=== PATIENT | female | born 1945 | race Caucasian/White ===

== ENCOUNTER 2016-10-13 19:18 | Emergency (ER) | payer MEDICARE ==
[2016-10-13 19:25] VITALS: BP 134/70
--- NOTE | 2016-10-13 19:34 | UC ---
Upper Extremity HPI - HPI Summary HPI Summary: 71 YEAR OLD FEMALE PRESENTS WITH COMPLAINS OF RIGHT WRIST PAIN POST FALL. - History of Current Complaint Chief Complaint: UCUpperExtremity Stated Complaint: HAND AND WRIST INJURY Time Seen by Provider: 10/13/16 19:31 Hx Obtained From: Patient Onset/Duration: Sudden Onset Severity Initially: Moderate Severity Currently: Moderate Pain Scale Used: 0-10 Numeric - 6 Location Of Pain: Is Discrete @ Character: Sharp Aggravating Factor(s): Movement, Flexion, Extension, Internal/External Rotation , Abduction, Adduction Associated Signs And Symptoms: Positive: Swelling - Allergies/Home Medications Allergies/Adverse Reactions: Allergies Allergy/AdvReac Type Severity Reaction Status Date / Time Clarithromycin [From Biaxin] Allergy Mild GI Upset Verified 10/13/16 19:25 steri strips Allergy Intermediate Rash Uncoded 10/13/16 19:25 PMH/Surg Hx/FS Hx/Imm Hx Previously Healthy: Yes - Surgical History Surgical History: Yes Surgery Procedure, Year, and Place: [id number] left [facility], rt ankle fusion, thyroidectomy, left knee arthroscopy, tonsilectomy. PESSARIES - WILL REMOVE FOR MRI - Family History Known Family History: Positive: None - Social History Alcohol Use: Occasionally Substance Use Type: None Smoking Status (MU): Former Smoker Type: Cigarettes Review of Systems Constitutional: Negative Skin: Negative Eyes: Negative ENT: Negative Respiratory: Negative Cardiovascular: Negative Gastrointestinal: Negative Genitourinary: Negative Motor: Negative Neurovascular: Negative Musculoskeletal: Other: - RIGHT WRIST PAIN Neurological: Negative Psychological: Negative All Other Systems Reviewed And Are Negative: Yes Physical Exam Triage Information Reviewed: Yes Vital Signs: Initial Vital Signs Temp 37.2 C 10/13/16 19:22 Pulse 67 10/13/16 19:22 Resp 12 10/13/16 19:22 BP 134/70 10/13/16 19:22 Pulse Ox 100 10/13/16 19:22 Eye Exam: Normal ENT Exam: Normal Dental Exam: Normal Neck exam: Normal Neck: Positive: 1 Respiratory Exam: Normal Cardiovascular Exam: Normal Abdominal Exam: Normal Musculoskeletal: Positive: Other: - RIGHT WRIST PAIN Neurological Exam: Normal Psychological Exam: Normal Skin Exam: Normal Upper Extremity Course/Dx - Differential Dx/Diagnosis Provider Diagnoses: RIGHT WRIST PAIN/SWELLING Discharge - Discharge Plan Condition: Stable Disposition: HOME Prescriptions: Acetaminophen TAB* [Tylenol TAB*] 650 mg PO Q6H PRN #30 tab PRN Reason: Pain Patient Education Materials: Wrist Injury (ED) Referrals: Mariola Oliva MD [Primary Care Provider] -
--- NOTE | 2016-10-13 20:17 | RAD ---
Indication: Right wrist injury. 3 views of the wrist demonstrates no fracture. No other bone or joint abnormality is identified. Chondrocalcinosis is noted at the triangle fibrocartilage. IMPRESSION: NO FRACTURE OF THE WRIST IS NOTED.
== END 2016-10-13 20:44 | disposition home or self-care (01) ==
LOC: UCEAST 19:18
DX: M25.531 Pain in right wrist (principal); M25.431 Effusion, right wrist; Z88.1 Allergy status to other antibiotic agents; Z87.891 Personal history of nicotine dependence
CPT/HCPCS: 99213; G0463

== ENCOUNTER 2018-05-31 11:09 | Emergency (ER) | payer MEDICARE ==
[2018-05-31 11:31] VITALS: BP 141/79
--- NOTE | 2018-05-31 12:07 | UC ---
FLU HPI - HPI Summary HPI Summary: 72-year-old female presents with complaints of persistent cough and fatigue. States she developed flulike symptoms on 05/21/2018 including general malaise, fatigue, body aches, nasal congestion, runny nose, and a dry nonproductive cough. She was seen by her primary care provider on 05/25/2018 and tested positive for influenza A. She states her symptoms were not improving so she called her primary care provider 2 days ago who started her on doxycycline 100 mg twice a day 10 days, gave her prescription for Delora inhaler which she has been using twice a day, as well as a cough suppressant as needed. Patient presents today because she has seen no improvement in her symptoms since starting the doxycycline and was unable to get in to see her primary care provider today. States her cough is usually nonproductive although she is occasionally of some clear mucus. Patient does have a history of rheumatoid arthritis and is currently on Enbrel and methotrexate however she states she has not been taking any of these medications since her illness began. Denies fever, chills, nasal congestion, runny nose, sore throat, chest pain, shortness of breath, wheezing, abdominal pain, nausea, or vomiting. - History of Current Complaint Chief Complaint: UCGeneralIllness Stated Complaint: FLU SYMPTOMS Time Seen by Provider: 05/31/18 12:02 Hx Obtained From: Patient Pain Intensity: 3 - Allergy/Home Medications Allergies/Adverse Reactions: Allergies Allergy/AdvReac Type Severity Reaction Status Date / Time clarithromycin [From Biaxin] AdvReac Mild GI Upset Verified 05/31/18 11:34 steri strips Allergy Intermediate Rash Uncoded 05/31/18 11:34 Home Medications: Home Medications DOXYcycline CAP(*) [DOXYcycline 100MG CAP(*)] 100 mg PO BID 05/31/18 [History Confirmed 05/31/18] Gabapentin CAP(*) [Neurontin 300 CAP(*)] 600 mg PO BEDTIME 05/31/18 [History Confirmed 05/31/18] Losartan Potassium [Cozaar] 50 mg PO DAILY 05/31/18 [History Confirmed 05/31/18] Melatonin 5 mg PO BEDTIME PRN 05/31/18 [History Confirmed 05/31/18] Mometasone/Formoter 100/5 MDI* [Dulera 100/5 MDI*] 2 puff INH BID 05/31/18 [ History Confirmed 05/31/18] [place]-3 Fatty Acids (Nf) [Fish Oil (NF)] 1,000 mg PO DAILY 05/31/18 [History Confirmed 05/31/18] PMH/Surg Hx/FS Hx/Imm Hx - Additional Past Medical History Additional PMH: Rheumatoid arthritis Previously Healthy: Yes Endocrine History: Hypothyroidism, Dyslipidemia Cardiovascular History: Hypertension - Surgical History Surgical History: Yes Surgery Procedure, Year, and Place: L4-L5 LAMINECTOMY. right thyroid lobectomy. right total hip 2016 - Family History Known Family History: Positive: None - Social History Alcohol Use: Daily Alcohol Amount: 1 glass of wine per day Substance Use Type: None Smoking Status (MU): Former Smoker Type: Cigarettes When Did the Patient Quit Smoking/Using Tobacco: 40 years ago Review of Systems All Other Systems Reviewed And Are Negative: Yes Constitutional: Positive: Fatigue. Negative: Fever, Chills Skin: Negative: Rash Eyes: Negative: Drainage, Eye Redness ENT: Negative: Sore Throat, Ear Ache, Nasal Discharge, Sinus Congestion, Sinus Pain/Tenderness Respiratory: Positive: Cough. Negative: Shortness Of Breath Cardiovascular: Negative: Palpitations, Chest Pain Gastrointestinal: Negative: Abdominal Pain, Vomiting, Diarrhea, Nausea Genitourinary: Positive: Negative Musculoskeletal: Positive: Negative Neurological: Positive: Negative Is Patient Immunocompromised?: Yes Physical Exam - Summary Physical Exam Summary: GENERAL APPEARANCE: Well developed, well nourished, alert and cooperative, and appears to be in no acute distress. EYES: Conjunctiva clear. No drainage. EARS: External auditory canals and tympanic membranes clear, hearing grossly intact. NOSE: Mild nasal congestion. No nasal discharge. THROAT: Pharyngeal cobblestoning. No tonsilar inflammation, swelling, exudate, or lesions. Uvula midline. NECK: Neck supple, non-tender without lymphadenopathy. CARDIAC: Normal S1 and S2. No S3, S4 or murmurs. Rhythm is regular. There is no peripheral edema, cyanosis or pallor. Extremities are warm and well perfused. Capillary refill is less than 2 seconds. Peripheral pulses intact. LUNGS: Clear to auscultation without rales, rhonchi, wheezing or diminished breath sounds. Harsh, dry, non-productive cough. ABDOMEN: Positive bowel sounds. Soft, nondistended, nontender. No guarding or rebound. No masses or hepatosplenomegally. MUSKULOSKELETAL: ROM intact to all extremities. No joint erythema or tenderness. Normal muscular development. Normal gait. SKIN: Skin normal color, texture and turgor with no lesions or eruptions. Triage Information Reviewed: Yes Vital Signs: Initial Vital Signs Temp 99.4 F 05/31/18 11:22 Pulse 82 05/31/18 11:22 Resp 16 05/31/18 11:22 BP 141/79 05/31/18 11:22 Pulse Ox 94 05/31/18 11:22 Vital Signs Reviewed: Yes Flu Course/Dx - Course Course Of Treatment: 72-year-old female presents with complaints of persistent cough and fatigue. States she developed flulike symptoms on 05/21/2018 including general malaise, fatigue, body aches, nasal congestion, runny nose, and a dry nonproductive cough. She was seen by her primary care provider on 05/25/2018 and tested positive for influenza A. She states her symptoms were not improving so she called her primary care provider 2 days ago who started her on doxycycline 100 mg twice a day 10 days, gave her prescription for Delora inhaler which she has been using twice a day, as well as a cough suppressant as needed. Patient presents today because she has seen no improvement in her symptoms since starting the doxycycline and was unable to get in to see her primary care provider today. States her cough is usually nonproductive although she is occasionally of some clear mucus. Patient does have a history of rheumatoid arthritis and is currently on Enbrel and methotrexate however she states she has not been taking any of these medications since her illness began. Denies fever, chills, nasal congestion, runny nose, sore throat, chest pain, shortness of breath, wheezing, abdominal pain, nausea, or vomiting. Afebrile. Hypertensive otherwise vital signs stable. Exam was remarkable for some pharyngeal cobblestoning, clear bilateral breath sounds, and a harsh, dry, nonproductive cough. I discussed with the patient that clinically she appears to have a community-acquired pneumonia which may be viral in nature especially considering her recent flu diagnosis however with the persistence of symptoms may be developing a secondary bacterial infection especially considering she is on Enbrel and methotrexate for her rheumatoid arthritis. Discussed getting a chest x-ray however patient is aware that this would only be a confirmation of her diagnosis is not change her treatment plan at this time therefore she is electing to defer. Patient appears nontoxic and her vital signs are stable therefore do not feel that she needs urgent evaluation in the emergency room and I think we can continue with her current treatment plan with the understanding that any worsening of symptoms would require evaluation in the emergency room. I have counseled the patient to follow up with her primary care provider in 2 more days if symptoms are not improving however I also discussed with her that recovery from a pneumonia may take several weeks. Patient was almost out of her cough suppressant therefore I have sent today another prescription for her to use as needed. Anticipatory guidance and warning symptoms were reviewed with the patient. Verbalizes understanding and agrees with plan of care. - Differential Dx/Diagnosis Differential Diagnosis/HQI/PQRI: Bronchitis, Influenza, Pneumonia, Upper Respiratory Infection Provider Diagnosis: CAP (community acquired pneumonia) Discharge - Sign-Out/Discharge Documenting (check all that apply): Patient Departure All imaging exams completed and their final reports reviewed: No Studies - Discharge Plan Condition: Stable Disposition: HOME Prescriptions: Codeine Phosphate/Guaifenesin [Codeine-Guaifen 10-100 mg/5 ml] 10 ml PO Q4H PRN #300 ml MDD 60 ml PRN Reason: Cough Patient Education Materials: Community Acquired Pneumonia (ED) Referrals: Mariola Oliva MD [Primary Care Provider] - 2 Days Additional Instructions: Based on your history and exam, a suspect that he may have a community- acquired pneumonia. With the recent diagnosis of influenza it is possible that this is viral in nature however I would be more concerned that you developed a secondary bacterial infection and would recommend that you continue with the doxycycline as prescribed. Continue with the Dulera inhaler as prescribed. Use the Cheratussin cough syrup 10 ml every 4-6 hours as needed for cough. Use no more than 60 ml/day. Follow up with your primary care provider in 2 days if no improvement in your symptoms. Seek immediate medical attention in the emergency room if you develop fever greater than 100.5 F, have chest pain, worsening shortness of breath, you become weak or dizzy, are coughing up blood, or have any worsening of symptoms. - Billing Disposition and Condition Condition: STABLE Disposition: Home
== END 2018-05-31 12:36 | disposition home or self-care (01) ==
LOC: UCEAST 11:09
DX: J18.9 Pneumonia, unspecified organism (principal); Z88.1 Allergy status to other antibiotic agents; I10 Essential (primary) hypertension; Z87.891 Personal history of nicotine dependence
CPT/HCPCS: 99212; G0463

== ENCOUNTER 2018-10-02 03:55 | Observation (INO) | payer MEDICARE ==
[2018-10-02] MEDS ORDERED: Morphine 4 MG/ML VIAL (1 ml) 4 MG/ML VIAL IV ONE (04:03)
[2018-10-02] MEDS ORDERED: Nitro 2% OINT* (Nitroglycerin) 1 INCH/PAK PAK TOPICAL ONE (04:03)
--- NOTE | 2018-10-02 04:03 | ED ---
HPI Chest Pain - HPI Summary HPI Summary: The patient is a 72 y/o F arriving by ambulance to [facility] with a chief complaint of sudden onset mid-sternal and left anterior CP starting yesterday at 1700 with worsening throughout the night. She reports that she had been at a picnic prior to the pain starting. She went to sleep with the pain rated 5/10 in severity. She woke up around 0200 this morning with the pain that had worsened to 8/10 in severity and started radiating into the neck. The pain is described as a heaviness as there is an elephant sitting on the chest. She states that the pain is aggravated by deep breathing and had some mild SOB with the pain. She denies any diaphoresis or nausea. In the ambulance, the patient was administered 324mg ASA and one NTG. She also had one adult ASA prior to EMS intervention. Her pain has currently dissipated to 4/10 in severity with medication. EMS also reports that the patient was sating at 92% and was placed on 2L. Takes Gabapentin for sleeping. No cardiac hx without previous similar episode. PMHx: HLD, HTN, hypothyroidism, rheumatoid arthritis. Former smoker, daily EtOH, no substance use. - History of Current Complaint Hx Obtained From: Patient Onset/Duration: Started Hours Ago - at 1700 last night, Still Present, Worse Since - 0200 this morning Timing: Lasting Hours Initial Severity: Moderate Current Severity: Mild Pain Intensity: 4 Pain Scale Used: 0-10 Numeric Chest Pain Location: Mid Sternal, Left Anterior Chest Pain Radiates: Yes Chest Pain Radiates To:: Neck Character: Heaviness - "elephant on chest" Aggravating Factor(s): Nothing Alleviating Factor(s): Medication - 324 mg ASA, NTG 123 - one Associated Signs and Symptoms: Positive: Chest Pain, Shortness of Breath - secondary to CP. Negative: Diaphoresis, Nausea - Allergy/Home Medications Allergies/Adverse Reactions: Allergies Allergy/AdvReac Type Severity Reaction Status Date / Time clarithromycin [From Biaxin] AdvReac Mild GI Upset Verified 10/02/18 07:13 steri strips Allergy Intermediate Rash Uncoded 10/02/18 07:13 PMH/Surg Hx/FS Hx/Imm Hx Endocrine/Hematology History: Reports: Hx Thyroid Disease - hypo - right lobectomy Denies: Hx Diabetes Cardiovascular History: Reports: Hx Hypercholesterolemia, Hx Hypertension Denies: Hx Pacemaker/ICD Respiratory History: Denies: Hx Asthma, Hx Chronic Obstructive Pulmonary Disease (COPD) GI History: Denies: Hx Ulcer History: Denies: Hx Renal Disease Musculoskeletal History: Reports: Hx Arthritis - rheumatoid arthritis, Hx Rheumatoid Arthritis, Hx Back Problems Denies: Hx Osteoporosis Sensory History: Reports: Hx Contacts or Glasses Denies: Hx Hearing Aid Opthamlomology History: Reports: Hx Contacts or Glasses Psychiatric History: Reports: Hx Depression Denies: Hx Panic Disorder - Cancer History Hx Chemotherapy: No Hx Radiation Therapy: No - Surgical History Surgical History: Yes Surgery Procedure, Year, and Place: L4-L5 LAMINECTOMY. right thyroid lobectomy. right total hip 2016 Infectious Disease History: Reports: Hx of Known/Suspected MRSA Denies: Hx Hepatitis, Hx Human Immunodeficiency Virus (HIV) - Family History Known Family History: Negative: Cardiac Disease, Hypertension, Diabetes - Social History Alcohol Use: Daily Alcohol Amount: 1 glass of wine per day Hx Substance Use: No Substance Use Type: Reports: None Hx Tobacco Use: Yes Smoking Status (MU): Former Smoker Type: Cigarettes Review of Systems Negative: Skin Diaphoresis Positive: Chest Pain - mid-sternal to left anterior Positive: Shortness Of Breath - related to CP Negative: Nausea All Other Systems Reviewed And Are Negative: Yes Physical Exam - Summary Physical Exam Summary: Appearance: Well-appearing, Well-nourished, lying in bed comfortably Skin: Warm, dry, no obvious rash Eyes: sclera anicteric, no conjunctival pallor ENT: mucous membranes moist, pharynx appears normal Neck: Supple, nontender Respiratory: Clear to auscultation, no signs of respiratory distress Cardiovascular: Normal S1, S2. No murmurs. Normal distal pulses in tibial and radial bilaterally. Abdomen: Soft, nontender, normal active bowel sounds present Musculoskeletal: Normal, Strength/ROM Intact Neurological: A&Ox3, awake and alert, mentation is normal, speech is fluent and appropriate Psychiatric: affect is normal, does not appear anxious or depressed Triage Information Reviewed: Yes Vital Signs Reviewed: Yes Diagnostics - Laboratory Result Diagrams: 10/02/18 04:20 10/02/18 04:20 Lab Statement: Any lab studies that have been ordered have been reviewed, and results considered in the medical decision making process. - Radiology CXR Radiology Interpretation Completed By: ED Physician Summary of Radiographic Findings: No acute process. ED physician has interpreted this report. Pending official read. - EKG 0413 Cardiac Rate: NL - 67 bpm EKG Rhythm: Sinus Rhythm Summary of EKG Findings: NSR at 67 bpm. No ischemic changes. No STEMI. Re-Evaluation - Re-Evaluation First Eval Re-Evaluation Time: 05:00 Change: Improved Comment: Pain has improved after medication. Chest Pain Course/Dx - Course Course Of Treatment: Patient is a 72 y/o F with cc of sudden onset 5/10 mid- sternal and left anterior chest heaviness radiating into the neck at 1700 last night with worsening this morning at 0200 to 8/10 and relief to 4/10 in severity after 324mg and one NTG administration by EMS. 2L O2 in ambulance. No cardiac hx. Upon physical exam, the patient exhibits no acute abnormalities. In the ED course, the patient was administered NTG and Morphine. Blood work primarily within normal limits but reveals WBCs of 12.0 and abs neuts of 9.6. EKG at 0413 reveals NSR at 67 bpm without ischemic changes. Chest x-ray, per my interpretation, reveals no acute process. Patient's case was discussed with Dr. Menjivar, Dr. Menjivar accepts for admission. - Diagnoses Provider Diagnoses: Chest pain - Provider Notifications Discussed Care Of Patient With: Lia Menjivar Time Discussed With Above Provider: 07:45 Instructed by Provider To: Other - Patient's case was discussed with Dr. Menjivar, Dr. Menjivar accepts for admission. Discharge ED - Sign-Out/Discharge Documenting (check all that apply): Patient Departure - admit Patient Received Moderate/Deep Sedation with Procedure: No - Discharge Plan Condition: Stable Disposition: ADMITTED TO [facility] - Billing Disposition and Condition Condition: STABLE Disposition: Admitted to [facility] - Attestation Statements Document Initiated by Scribe: Yes Documenting Scribe: Aranza Camp Provider For Whom Manoj is Documenting (Include Credential): Dr. Ernesto Gaytan MD Scribe Attestation: Aranza Ocasio, scribed for Dr. Ernesto Gaytan MD on 10/06 at 1900. Scribe Documentation Reviewed: Yes Provider Attestation: The documentation as recorded by the Aranza santos accurately reflects the service I personally performed and the decisions made by me, Dr. Ernesto Gaytan MD Status of Scribe Document: Viewed
--- OUTSIDE RECORDS SUMMARY | 2018-10-02 04:30 | XMS REPORT | Continuity of Care Document ---
:1945 External Reference #:[id number] Author Name JODY Arita (transmitted by agent of provider Camille Yuan) Address [address] [place] [address] Care Team Providers Name Role Phone Mariola Pryor MD - Internal Care Team Information President [employer] Medicine Problems Active Problems Provider Date Rheumatoid arthritis Enrrique Carlos M.D. Onset: 11/22/2011 Medications Emergency Vehicle Driver (Current) Use Encounter Enrrique Carlos M.D. Onset: 09/2011 Lumbosacral spondylosis without myelopathy Enrrique Carlos M.D. Onset: 2011 Corneal ulcer Enrrique Carlos M.D. Onset: 05/30/2012 Insomnia Enrrique Carlos M.D. Onset: 01/24/2013 Osteoarthritis of knee Enrriuqe Carlos M.D. Onset: 10/03/2013 Taking medication Enrrique Carlos M.D. Onset: 01/25/2014 Onychia of toe Enrrique Carlos M.D. Onset: 01/25/2014 Lumbar spondylosis JODY Arita Onset: 11/18/2014 Social History Type Date Description Comments Sex Unknown ETOH Use Occasionally consumes alcohol Tobacco Use Start: Unknown End: Unknown Patient is a former smoker Smoking Status Reviewed: 09/25/18 Patient is a former smoker Allergies, Adverse Reactions, Alerts Active Allergies Reaction Severity Comments Date Biaxin GI issues 11/08/2016 Steri Strips pustuals 11/08/2016 Inactive Allergies NKDA 05/31/2011 Medications Active Medications SIG Qnty Indications Ordering Provider Date Methotrexate take 4 tablets 48tabs Z79.899 Thi Cotton 05/27/2015 2.5mg by mouth every CUSTOMER DEVELOPMENT REPRESENTATIVE Tablets week M06.09 M05.79 Losartan 1 po qd 30tabs Enrrique Carlos, 11/14/2012 Potassium M.D. 50mg Tablets Zetia 1 po qd 90tabs Enrrique Endo, 11/14/2012 10mg M.D. Tablets Restasis one gtts ou bid 6trays Enrrique Carlos, 12/29/2010 0.05% M.D. Emulsion Folic Acid take 1 tablet daily 90tabs Z79.899 Hebertofia Yury, 09/01/2010 1mg CUSTOMER DEVELOPMENT REPRESENTATIVE Tablets Enbrel Sureclick inject subcutaneously 11.76units Z79.899 Hebertofia Yury, 08/31/2010 50mg every week CUSTOMER DEVELOPMENT REPRESENTATIVE 50mg/ml Solution Auto-Inject M06.09 M05.79 Fish Oil Burp-Less by mouth daily 60caps Unknown 1000mg Capsules Gabapentin TK 1 To 2 CS PO QHS Unknown 300mg Capsules Meloxicam prn Unknown 15mg Tablets Ranitidine HCL TK 1 T PO bid Unknown 150mg Tablets Colace 1 tab every 12 hours as Unknown 100mg Capsules needed for constipation Immunizations CPT Code Status Date Vaccine Lot # [id number] Given 11/11/2014 Flu Vaccine Split Virus Preservative Free For Indiv 3Yr Older Vital Signs Date Vital Result Comment 09/25/2018 1:00pm Height 63 inches 5'3" Heart Rate 58 /min BP Systolic Sitting 137 mmHg BP Diastolic Sitting 74 mmHg Body Temperature 97.7 F O2 % BldC Oximetry 95 % 06/19/2018 3:05pm Height 63 inches 5'3" Weight 163.00 lb Heart Rate 61 /min BP Systolic 132 mmHg BP Diastolic 83 mmHg Body Temperature 98.1 F O2 % BldC Oximetry 93 % BMI (Body Mass Index) 28.9 kg/m2 Results Test Date Facility Test Result H/L Range Note CBC Auto 09/22/2018 [facility] White Blood 5.6 10^3/uL Normal 3.5-10.[address] [place] [address] [phone] Red Blood Count 4.60 10^6/uL Normal 3.70-4.87 Hemoglobin 15.1 g/dL Normal 12.0-16.0 Hematocrit 45 % Normal 35-47 Mean Corpuscular Volume 97 fL Normal 80-97 Mean Corpuscular Hemoglobin 33 pg High 27-31 Mean Corpuscular HGB Conc 34 g/dL Normal 31-36 Red Cell Distribution Width 14 % Normal 10-15 Platelet Count 260 10^3/uL Normal 150-450 Mean Platelet Volume 8.5 fL Normal 7.4-10.4 Abs Neutrophils 3.6 10^3/uL Normal 1.5-7.7 Abs Lymphocytes 1.4 10^3/uL Normal 1.0-4.8 Abs Monocytes 0.4 10^3/uL Normal 0-0.8 Abs Eosinophils 0.2 10^3/uL Normal 0-0.6 Abs Basophils 0.0 10^3/uL Normal 0-0.2 Abs Nucleated RBC 0.0 10^3/uL Granulocyte % 63.3 % Lymphocyte % 24.5 % Monocyte % 7.9 % Eosinophil % 3.7 % Basophil % 0.6 % Nucleated Red Blood Cells % 0.0 Comp Metabolic 09/22/2018 [facility] Sodium 140 mmol/L Normal 135-[address] [place] [address] [phone] Potassium 4.5 mmol/L Normal 3.5-5.0 Chloride 104 mmol/L Normal 101-111 Co2 Carbon Dioxide 32 mmol/L Normal 22-32 Anion Gap 4 mmol/L Normal 2-11 Glucose 82 mg/dL Normal 70-100 Blood Urea Nitrogen 10 mg/dL Normal 6-24 Creatinine 0.68 mg/dL Normal 0.51-0.95 BUN/Creatinine Ratio 14.7 Normal 8-20 Calcium 9.1 mg/dL Normal 8.6-10.3 Total Protein 6.3 g/dL Low 6.4-8.9 Albumin 4.2 g/dL Normal 3.2-5.2 Globulin 2.1 g/dL Normal 2-4 Albumin/Globulin Ratio 2.0 Normal 1-3 Total Bilirubin 0.60 mg/dL Normal 0.2-1.0 Alkaline Phosphatase 56 U/L Normal 34-104 Alt 20 U/L Normal 7-52 Ast 19 U/L Normal 13-39 Egfr Non- 85.1 >60 Egfr 102.9 >60 1 Laboratory test 09/22/2018 [facility] C Reactive 1.28 mg/L Normal <8.01 [address] [place] [address] [phone] Erythrocyte Sed Rate 6 mm/Hr Normal 0-29 3 CBC Auto 06/16/2018 [facility] White Blood 5.8 10^3/uL Normal 3.5-10.[address] [place] [address] [phone] Red Blood Count 4.53 10^6/uL Normal 3.70-4.87 Hemoglobin 14.7 g/dL Normal 12.0-16.0 Hematocrit 45 % Normal 35-47 Mean Corpuscular Volume 98 fL High 80-97 Mean Corpuscular Hemoglobin 33 pg High 27-31 Mean Corpuscular HGB Conc 33 g/dL Normal 31-36 Red Cell Distribution Width 13 % Normal 10.5-15 Platelet Count 336 10^3/uL Normal 150-450 Mean Platelet Volume 8.4 fL Normal 7.4-10.4 Abs Neutrophils 3.5 10^3/uL Normal 1.5-7.7 Abs Lymphocytes 1.7 10^3/uL Normal 1.0-4.8 Abs Monocytes 0.4 10^3/uL Normal 0-0.8 Abs Eosinophils 0.2 10^3/uL Normal 0-0.6 Abs Basophils 0.0 10^3/uL Normal 0-0.2 Abs Nucleated RBC 0.0 10^3/uL Granulocyte % 60.0 % Lymphocyte % 29.1 % Monocyte % 6.8 % Eosinophil % 3.2 % Basophil % 0.9 % Nucleated Red Blood Cells % 0.2 Comp Metabolic 06/16/2018 [facility] Sodium 138 mmol/L Normal 135-[address] [place] [address] [phone] Potassium 4.4 mmol/L Normal 3.5-5.0 Chloride 105 mmol/L Normal 101-111 Co2 Carbon Dioxide 27 mmol/L Normal 22-32 Anion Gap 6 mmol/L Normal 2-11 Glucose 94 mg/dL Normal 70-100 Blood Urea Nitrogen 11 mg/dL Normal 6-24 Creatinine 0.63 mg/dL Normal 0.51-0.95 BUN/Creatinine Ratio 17.5 Normal 8-20 Calcium 9.3 mg/dL Normal 8.6-10.3 Total Protein 6.5 g/dL Normal 6.4-8.9 Albumin 4.1 g/dL Normal 3.2-5.2 Globulin 2.4 g/dL Normal 2-4 Albumin/Globulin Ratio 1.7 Normal 1-3 Total Bilirubin 0.50 mg/dL Normal 0.2-1.0 Alkaline Phosphatase 58 U/L Normal 34-104 Alt 37 U/L Normal 7-52 Ast 23 U/L Normal 13-39 Egfr Non- 92.9 >60 Egfr 112.4 >60 4 Laboratory test 06/16/2018 [facility] C Reactive 3.82 mg/L Normal <8.[address] [place] [address] [phone] Erythrocyte Sed Rate 14 mm/Hr Normal 0-29 1 Because ethnic data is not always readily available, this report includes an eGFR for both -Americans and non- Americans. The National Kidney Disease Education Program (NKDEP) does not endorse the use of the MDRD equation for patients that are not between the ages of 18 and 70, are , have extremes of body size, muscle mass, or nutritional status, or are non- or non-. According to the National Kidney Foundation, irrespective of diagnosis, the stage of the disease is based on the level of kidney function: Stage Description GFR(mL/min/1.73 m(2)) 1 Kidney damage with normal or decreased GFR 90 2 Kidney damage with mild decrease in GFR 60-89 3 Moderate decrease in GFR 30-59 4 Severe decrease in GFR 15-29 5 Kidney failure <15 (or dialysis) 2 so q 12 weeks or as directed START:05-19-18 EXP:11-18-18 3 so q 12 weeks or as directed START:05-19-18 EXP:11-18-18 4 Because ethnic data is not always readily available, this report includes an eGFR for both -Americans and non- Americans. The National Kidney Disease Education Program (NKDEP) does not endorse the use of the MDRD equation for patients that are not between the ages of 18 and 70, are , have extremes of body size, muscle mass, or nutritional status, or are non- or non-. According to the National Kidney Foundation, irrespective of diagnosis, the stage of the disease is based on the level of kidney function: Stage Description GFR(mL/min/1.73 m(2)) 1 Kidney damage with normal or decreased GFR 90 2 Kidney damage with mild decrease in GFR 60-89 3 Moderate decrease in GFR 30-59 4 Severe decrease in GFR 15-29 5 Kidney failure <15 (or dialysis) Procedures Description No Information Available Medical Devices Description No Information Available Encounters Type Date Location Provider Dx Diagnosis Office Visit 06/19/2018 Rheumatology Thi Cotton, M05.79 Rheu arthritis w 3:00[facility] rheu factor mult [facility] w/o org/sys involv J18.9 Pneumonia, unspecified organism M35.00 Sicca syndrome, unspecified Z79.899 Other [facility] (current) drug therapy Assessments Date Code Description Provider 09/25/2018 M05.79 Rheumatoid arthritis with rheumatoid factor of Hebertofia JODY Cotton [facility] site 09/25/2018 M35.00 Sicca syndrome, unspecified Hebertofia Yury, CUSTOMER DEVELOPMENT REPRESENTATIVE 09/25/2018 Z79.899 Other [facility] (current) drug therapy JODY Arita 06/19/2018 M05.79 Rheumatoid arthritis with rheumatoid factor of Hebertofia Yury, CUSTOMER DEVELOPMENT REPRESENTATIVE [facility] site 06/19/2018 J18.9 Pneumonia, unspecified organism Hebertofia Yury, CUSTOMER DEVELOPMENT REPRESENTATIVE 06/19/2018 M35.00 Sicca syndrome, unspecified Hebertofia Yury, CUSTOMER DEVELOPMENT REPRESENTATIVE 06/19/2018 Z79.899 Other [facility] (current) drug therapy JODY Arita Plan of Treatment Future Appointment(s):12/18/2018 1:00 pm - JODY Arita at [facility]09/25/2018 - ALEXIS AritaPM05.79 Rheumatoid arthritis with rheumatoid factor of multiple siteFollow up:early December lbs avunuU27.00 Sicca syndrome, gtvvgfluikqK30.899 Other [facility] (current) drug therapy Functional Status Description No Information Available Mental Status Description No Information Available Referrals Description No Information Available
[2018-10-02 04:37] LABS: ABS Basophils 0.1 10^3/ul (0-0.2); ABS Eosinophils 0.3 10^3/ul (0-0.6); ABS Lymphocytes 1.2 10^3/ul (1.0-4.8); ABS Monocytes 0.7 10^3/ul (0-0.8); ABS Neutrophils 9.6 10^3/ul (1.5-7.7); Eosinophil % 2.7 %; Hematocrit 42 % (35-47); Hemoglobin 14.3 g/dL (12.0-16.0); Lymphocyte % 10.1 %; Mean Corpuscular HGB Conc 34 g/dL (31-36); Mean Corpuscular Hemoglobin 33 pg (27-31); Mean Corpuscular Volume 97 fL (80-97); Mean Platelet Volume 8.3 fL (7.4-10.4); Nucleated Red Blood Cells % 0.1; Platelet Count 252 10^3/uL (150-450); Red Blood Count 4.39 10^6 /uL (3.70-4.87); Red Cell Distribution Width 14 % (10-15)
[2018-10-02 04:54] LABS: Albumin 3.9 g/dL (3.2-5.2); Albumin/Globulin Ratio 1.5 (1-3); Calcium 8.8 mg/dL (8.6-10.3); EGFR African American 116.7 (>60); EGFR Non-African American 96.4 (>60); Globulin 2.6 g/dL (2-4); Potassium 4.2 mmol/L (3.5-5.0); Total Bilirubin 0.6 mg/dL (0.2-1.0); Total Protein 6.5 g/dL (6.4-8.9)
[2018-10-02 04:56] LABS: Troponin I 0.01 ng/mL (<0.04)
[2018-10-02] MEDS ORDERED: Levothyroxine TAB* 75 MCG TAB PO SCH (06:00)
[2018-10-02] MEDS ORDERED: Acetaminophen TAB* 325 MG PO PRN (08:29)
[2018-10-02] MEDS ORDERED: Morphine INJ* 2 MG/ML 1 ML SYRINGE (TWO MG - NEW SYRINGE VERSION) IV PRN (08:29)
[2018-10-02] MEDS ORDERED: Pantoprazole IV* 40 MG IV ONE (08:58)
[2018-10-02] MEDS ORDERED: Ezetimibe TAB* 10 MG PO SCH (09:00)
[2018-10-02] MEDS ORDERED: FLUoxetine CAP* 10 MG PO SCH (09:00)
[2018-10-02] MEDS ORDERED: Folic Acid TAB* 1 MG PO SCH (09:00)
[2018-10-02] MEDS ORDERED: NS 0.9% 1000 ML** 1,000 ML IV SCH (09:00)
--- NOTE | 2018-10-02 10:53 | HP ---
CC: Mariola Pryor MD* HISTORY AND PHYSICAL: DATE OF ADMISSION: 10/02/18 PRIMARY CARE PROVIDER: Mariola Pryor MD CHIEF COMPLAINT: Chest pain. HISTORY OF PRESENT ILLNESS: Angi Velazquez is a 72-year-old female with history of rheumatoid arthritis, who presented to the hospital complaining of chest pain. It occurred at 4 a.m. in the morning, was associated with the pleuritic pain, but denies shortness of breath, denies cough. She stated that she has history of reflux disease, but the pain feels different. There is a point tenderness on the right costochondral margin. The ED provider recommended for the patient to stay over for the stress test. She likely is going to have stress test today. PAST MEDICAL HISTORY: 1. History of rheumatoid arthritis, on Enbrel and methotrexate. 2. History of hypothyroidism. 3. Dyslipidemia. 4. Hypertension. 5. History of right thyroid lobectomy for benign nodules. 6. History of L4-L5 laminectomy. 7. History of left hip osteoarthritis with steroid injections in the past and right hip total replacement in 2016. 8. History of bilateral feet surgery, left-sided arthrodesis of the left foot and right-sided tibial tendon tear repair. MEDICATIONS AT HOME: Include: 1. Ranitidine 150 mg b.i.d. 2. [place]-3 fatty acids 1000 mg daily. 3. Melatonin 5 mg at bedtime. 4. Enbrel 50 mg subcutaneously weekly. 5. Restasis eye drops 0.05% 1 drop both eyes b.i.d. 6. Acetaminophen on a p.r.n. basis 7. Gabapentin 800 mg at bedtime. 8. Folic acid 1 mg daily. 9. Fluoxetine 10 mg b.i.d. 10. Zetia 10 mg daily. 11. Losartan 50 mg daily. 12. Levothyroxine 75 mcg daily. 13. Methotrexate 15 mg weekly. 14. The patient also takes meloxicam on as needed basis. ALLERGIES: CLARITHROMYCIN and STERI-STRIPS. FAMILY HISTORY: Father with complications of alcohol at the age of 54 and mother with complications of hip fracture at the age of 87. SOCIAL HISTORY: The patient has a history of smoking less than a pack a day for 10 years and she quit over 40 years ago. She drinks a glass of wine a day. She is a retired registered nurse. She lives with her , who is her surrogate. REVIEW OF SYSTEMS: Please see history of present illness. All the remaining 12 systems were reviewed with the patient and were otherwise negative. PHYSICAL EXAMINATION GENERAL: The patient is a very pleasant 72-year-old female, who is not in acute distress. Alert, awake, and oriented x3. VITAL SIGNS: Blood pressure of 110/60, heart rate of 69 and regular, respiratory rate 26, oxygen saturation 91% on room air, and temperature of 98.2. HEENT: Head is atraumatic, normocephalic. Eyes: Pupils are equal and reactive to light and accommodation. Oropharynx is clear. Mucosa moist. NECK: Supple. No JVD. No bruit bilaterally. RESPIRATORY: Clear to auscultation bilaterally. CARDIOVASCULAR: Regular rate and rhythm. No murmur. ABDOMEN: Soft, minimally tender in the epigastric region with no rebound, no guarding. Bowel sounds are present in all 4 quadrants. EXTREMITIES: There is no edema. Pulses are +2 bilaterally with no clubbing or cyanosis. NEUROLOGIC: On neuro evaluation, cranial nerves II through XII grossly intact. Motor strength is 5/5 bilaterally. SKIN: On evaluation of the skin, no ecchymotic areas or rashes noted. PSYCHIATRIC EVALUATION: Oriented x3 with no evidence of anxiety or depression. DIAGNOSTIC STUDIES/LAB DATA: Laboratory data showed white blood cell count of 12.3, hemoglobin of 14.3, hematocrit of 42 and platelets of 252. D-dimer was below 200. Sodium 139, potassium 4.2, chloride 105, carbon dioxide 27, BUN 14, creatinine 0.61. Liver function tests unremarkable. Troponin initially 0.01, now is 0. Portable chest x-ray, impression: "No active cardiopulmonary disease." The patient's EKG showed normal sinus rhythm with heart rate of 67 beats per minute with no ST changes. ASSESSMENT AND PLAN: 1. Chest pain, pleuritic. The patient with negative D-dimer with history of rheumatoid arthritis. The patient is going to undergo cardiac pharmacologic stress test due to her history of arthritis and troponins continued to be negative. If her stress test is negative, the other consideration is possibility of costochondritis versus GI symptoms. The patient is going to be placed on n.p.o. for the stress test. We will treat the patient with Protonix IV x1 dose. She is going to be placed on gentle intravenous hydration. Once her cardiac issues are ruled out, she can be placed on her p.r.n. meloxicam for costochondritis since the patient stated ibuprofen "does not work." 2. For DVT prophylaxis, the patient is going to be placed on heparin subcutaneously. 3. For hypothyroidism, her outpatient levothyroxine dose is going to be continued. 4. The patient's rheumatoid arthritis, methotrexate and Enbrel are going to be held. 5. Her code status is full and her surrogate is her . TIME SPENT: Approximately 55 minutes was spent on admission of this patient. More than half that time was spent [id number] with the patient during the interview and physical exam. [id number]/CPS #: [id number] SUSAN
[2018-10-02] MEDS ORDERED: Regadenoson* 0.4 MG/5 ML SYRINGE ONE (10:58)
[2018-10-02] MEDS ORDERED: Heparin VIAL(*) 5000 UNITS/ML VIAL (FIVE THOUSAND) SUBCUT SCH (14:00)
[2018-10-02 15:25] VITALS: BP 117/47
--- NOTE | 2018-10-02 20:41 | DS ---
CC: Dr. Pryor* DISCHARGE SUMMARY: DATE OF ADMISSION: 10/02/18 DATE OF DISCHARGE TO HOME: 10/02/18 PRIMARY CARE PROVIDER: Dr. Pryor. DISCHARGE DIAGNOSIS: Chest pain with low probability cardiac stress test documented on 10/02/18. We suspect that the patient actually developed costochondritis. SECONDARY DIAGNOSIS: Unchanged from past medical history. Please see history and physical dictated on the same date, which was 10/02/18. MEDICATIONS ON DISCHARGE: Unchanged from admission and those include: 1. Ranitidine 150 mg b.i.d. 2. [place]-3 fatty acids 1000 mg daily. 3. Melatonin 5 mg on a p.r.n. basis. 4. Enbrel 50 mg subcutaneously weekly. 5. Cyclosporine ophthalmic solution 1 drop both eyes b.i.d. 6. Acetaminophen on a p.r.n. basis 7. Gabapentin 800 mg at bedtime. 8. Folic acid 1 mg daily. 9. Fluoxetine 10 mg daily. 10. Zetia 10 mg daily. 11. Losartan 50 mg daily. 12. Levothyroxine 75 mcg daily. 13. Methotrexate 15 mg p.o. weekly. LABORATORY DATA: Laboratory data showed continuation of troponins between 0 and 0.01. The patient's D-dimer was below 200. The patient's nuclear medicine cardiac stress test documented on 10/02/18, impression: "No definite fixed or reversible perfusion defects". It was assessed as low risk. The patient's EF was noted to be 65%. PHYSICAL EXAMINATION AT DISCHARGE: Not changed from admission. Please also note that the patient prior to her hospital stay, she had tenderness on palpation of her right costochondral joints on the right side of the sternum. Physical exam at the time of discharge unchanged from admission. HOSPITALIZATION COURSE: Angi Velazquez is a 72-year-old female with history of rheumatoid arthritis, who presented complaining of pleuritic right-sided rib/ sternal pain noted in the middle of the night. The patient had tenderness to palpation of the right costochondral area. She was observed on telemetry monitored bed with no noted arrhythmias. The patient's stress test was low risk. Her troponins continued to be negative throughout the hospital stay. The patient is going to be discharged home with recommendation to follow up with Dr. Pryor in approximately 4 to 7 days. The patient is recommended to use ibuprofen or meloxicam on an as-needed basis for the pain. DISPOSITION AT DISCHARGE: Home. CONDITION ON DISCHARGE: Stable. [id number]/CPS #: [id number] [id number]
[2018-10-02] MEDS ORDERED: Gabapentin CAP(*) 400 MG PO SCH (21:00)
[2018-10-02] MEDS ORDERED: Melatonin 3 MG TAB PO SCH (21:00)
== END 2018-10-02 17:04 | disposition home or self-care (01) ==
LOC: ED 03:55 → MEDTELE 08:53
PROVIDERS: ADMIT Internal Medicine; ATTEND Internal Medicine
DX: R07.9 Chest pain, unspecified (principal); Z79.899 Other long term (current) drug therapy; M06.9 Rheumatoid arthritis, unspecified; E03.9 Hypothyroidism, unspecified; E78.5 Hyperlipidemia, unspecified; I10 Essential (primary) hypertension; Z90.89 Acquired absence of other organs; Z87.891 Personal history of nicotine dependence
CPT/HCPCS: 36415; 71045; 78452; 80053; 84484; 85025; 85379; 93005; 93017; 96374; 96375; 99284; A9270-GY; A9502; G0378; J2270; J2785